=== PATIENT | male | born 1970 | race Two or more races ===

== ENCOUNTER → 2023-11-10 | Outpatient (CLI) | payer OTHER ==
--- NOTE | 2023-11-15 06:23 | MR ---
EXAMINATION TYPE: MR shoulder RT wo con DATE OF EXAM: 11/10/2023 COMPARISON: Outside Right shoulder x-ray November 05, 2023 HISTORY: Right shoulder pain with difficulty raising arm overhead for 6 months TECHNIQUE: Multiplanar, multisequence imaging of the right shoulder is performed without contrast. FINDINGS: Rotator Cuff: Some increased signal in the infraspinatus and supraspinatus tendons. Partial tearing i nvolving the anterior one half of the supraspinatus tendon with 2.0 cm tear is seen transversely miki nal image 13. Intact subscapularis tendon. Rotator cuff muscle bulk is preserved. Acromioclavicular Joint: Moderate to severe capsular hypertrophy. Moderate narrowing. Mild spurring. Loss of the underlying fat plane is seen. Glenohumeral Joint: Moderate to large size joint effusion. No significant spurring. Labrum: The labrum appears grossly intact given limitation of non-arthrogram study. Biceps Tendon: The long head of biceps is in normal location within bicipital groove. Increased signa l extracapsular portion axial image 7 and coronal image 12 is noted. Bone marrow signal: No focal abnormal marrow signal is appreciated. Other: No additional significant abnormality is appreciated. IMPRESSION: 1. Some tendinosis of the supraspinatus and infraspinatus tendons. Significant retracted tear of the anterior one half fibers of the supraspinatus tendon. 2. Moderate to large size glenohumeral joint effusion. 3. Tendinosis/partial tearing of the long head of biceps tendon. 4. Moderate to severe AC joint arthropathy with suggestion of underlying impingement. Correlate clini nan.
== END | disposition home or self-care (01) ==
LOC: RADMRIMAIN 19:05
PROVIDERS: ATTEND Orthopaedic Surgery
DX: M19.011 Primary osteoarthritis, right shoulder (principal); M25.811 Other specified joint disorders, right shoulder; M67.813 Other specified disorders of tendon, right shoulder; M75.111 Incomplete rotator cuff tear or rupture of right shoulder, not specified as traumatic; M25.411 Effusion, right shoulder